=== PATIENT | female | born 1980 | race American Indian/Alaskan Native ===

== ENCOUNTER 2017-08-31 10:08 | Emergency (ER) | payer MEDICAID ==
--- NOTE | 2017-08-31 10:16 | Emergency Department Report ---
Stated Complaint: UROGENTLIA-FEMALE Time Seen by Provider: 08/31/17 10:14 - HPI History of Present Illness: PT c/o itchy vaginal discharge x 1 week. PT states the discharge is milky, + fishy odor - ROS Review of Systems: - dysuria + recent unprotected sex - Exam Physical Exam: PT looks well, non toxic No acute distress exam not done in triage MSE screening note: Focused history and physical exam performed. Due to findings the following was ordered: labs ED Disposition for MSE Condition: Stable
[2017-08-31 12:36] LABS: Bacteria,Urine 1+ /HPF (Negative); Bilirubin,Urine NEG (Negative); Blood,Urine NEG (Negative); Ketones,Urine NEG (Negative); Leukocyte Esterase,Urine LG (Negative); Nitrite,Urine NEG (Negative); Urobilinogen,Urine < 2.0 mg/dL (<2.0)
--- NOTE | 2017-08-31 12:49 | Emergency Department Report ---
ED Female HPI - General Chief complaint: Urogenital-Female Stated complaint: UROGENTLIA-FEMALE Time Seen by Provider: 08/31/17 10:14 Source: patient Mode of arrival: Ambulatory Limitations: No Limitations - History of Present Illness Initial comments: She reports vaginal discharge that smells like fish with itching in an bad odor. She says she had unsafe sex. She also denies any burning with urination. Denies any abdominal or back pain. Denies any fever or chills. Denies any nausea or vomiting. Pain is 0-10 at present. MD Complaint: vaginal discharge, possible STD Onset/Timin -: days(s) Severity scale (0 -10): 0 Are you Now?: No Last Menstrual Period: 08/01/17 (since that she is currently common on her menses) EDC: 05/08/18 Associated Symptoms: vaginal discharge. denies: vaginal bleeding, abdominal pain, nausea/vomiting, fever/chills, headaches, loss of appetite, dysuria, hematuria, rash, seizure, shortness of breath, syncope, weakness - Related Data Sexually active: Yes (practice unsafe sex) Previous Rx's Medication Instructions Recorded Last Taken Type HYDROcodone/APAP 5-325 [[place] 1 each PO Q4HR PRN #12 tablet 11/11/15 Unknown Rx 5/325] Nitrofurantoin Monohyd/M-Cryst 100 mg PO Q12H #14 capsule 08/31/17 Unknown Rx [Macrobid 100 mg Capsule] metroNIDAZOLE [Flagyl] 500 mg PO Q12HR #14 tab 08/31/17 Unknown Rx Allergies Allergy/AdvReac Type Severity Reaction Status Date / Time No Known Allergies Allergy Verified 11/10/15 22:15 ED Review of Systems ROS: Stated complaint: UROGENTLIA-FEMALE Other details as noted in HPI Comment: All other systems reviewed and negative Constitutional: no symptoms reported Eyes: denies: eye pain, vision change ENT: denies: throat pain Respiratory: no symptoms reported Cardiovascular: denies: chest pain, palpitations, edema, syncope Gastrointestinal: denies: abdominal pain, nausea, vomiting, diarrhea, constipation, hematemesis, melena, hematochezia Genitourinary: discharge. denies: urgency, dysuria, frequency, hematuria Musculoskeletal: denies: back pain, joint swelling, arthralgia, myalgia Skin: denies: rash, lesions, pruritus Neurological: denies: headache, weakness, numbness, paresthesias, confusion, abnormal gait, vertigo ED Past Medical Hx - Past Medical History Previous Medical History?: No - Surgical History Past Surgical History?: Yes Additional Surgical History: 5X - Family History Family history: no significant - Social History Smoking Status: Never Smoker Substance Use Type: None - Medications Home Medications: Home Medications Medication Instructions Recorded Confirmed Last Taken Type HYDROcodone/APAP 5-325 [[place] 1 each PO Q4HR PRN #12 tablet 11/11/15 Unknown Rx 5/325] Nitrofurantoin Monohyd/M-Cryst 100 mg PO Q12H #14 capsule 08/31/17 Unknown Rx [Macrobid 100 mg Capsule] metroNIDAZOLE [Flagyl] 500 mg PO Q12HR #14 tab 08/31/17 Unknown Rx ED Physical Exam - General Limitations: No Limitations General appearance: alert, in no apparent distress - Head Head exam: Present: atraumatic, normocephalic, normal inspection - Eye Eye exam: Present: normal appearance, PERRL, EOMI Pupils: Present: normal accommodation - ENT ENT exam: Present: normal exam, normal orophraynx, mucous membranes moist - Neck Neck exam: Present: normal inspection, full ROM. Absent: tenderness, meningismus, lymphadenopathy - Respiratory Respiratory exam: Present: normal lung sounds bilaterally. Absent: respiratory distress, chest wall tenderness - Cardiovascular Cardiovascular Exam: Present: regular rate, normal rhythm, normal heart sounds. Absent: systolic murmur, diastolic murmur - GI/Abdominal GI/Abdominal exam: Present: soft, normal bowel sounds. Absent: distended, tenderness, guarding, rebound, rigid, organomegaly, mass, bruit, pulsatile mass , hernia - External exam: Present: normal external exam, other (vaginal discharge with malodorous). Absent: erythema, swelling, lesions, lacerations, ecchymosis, bleeding Speculum exam: Present: vaginal discharge, cervical discharge. Absent: erythema , vaginal bleeding, foreign body, tissue, laceration Bi-manual exam: Absent: cervical motion tendernes, adnexal tenderness, adnexal mass, uterine enlargement, uterine tenderness - Extremities Exam Extremities exam: Present: normal inspection, full ROM, normal capillary refill , other (no clubbing, cyanosis or edema. +2 pulses in all extremities and no neurovascular compromise). Absent: tenderness, pedal edema, joint swelling, calf tenderness - Back Exam Back exam: Present: normal inspection, full ROM. Absent: tenderness, CVA tenderness (R), CVA tenderness (L), muscle spasm, paraspinal tenderness, vertebral tenderness, rash noted - Neurological Exam Neurological exam: Present: alert, oriented X3, normal gait, reflexes normal. Absent: motor sensory deficit - Psychiatric Psychiatric exam: Present: normal affect, depressed - Skin Skin exam: Present: warm, dry, intact, normal color. Absent: rash ED Course Vital Signs 08/31/17 10:16 Temperature 98.1 F Pulse Rate 87 Respiratory 16 Rate Blood Pressure 165/90 O2 Sat by Pulse 100 Oximetry - Reevaluation(s) Reevaluation #1: 08/31/17 14:02 Patient with few trichomonias and less than 20% clue cell on wet prep. She had no yeast cell. She also has urinary tract infection. This was explained to patient in detail. Patient chose to be treated empirically in emergency room for gonorrhea and chlamydia which was sent off via urine. She also wants to be treated for Trichomonas and I discussed with her that she will be treated for bacterial vaginosis with Flagyl which will also cover Trichomonas. Patient receive Rocephin 1 g IM and azithromycin 1 g by mouth without any adverse reaction. ED Medical Decision Making - Lab Data Lab Results 08/31/17 Range/Units 12:13 Urine Color Yellow (Yellow) Urine Turbidity Clear (Clear) Urine pH 5.0 (5.0-7.0) Ur Specific [place] 1.025 (1.003-1.030) Urine Protein 30 mg/dl (Negative) mg/dL Urine Glucose (UA) Neg (Negative) mg/dL Urine Ketones Neg (Negative) mg/dL Urine Blood Neg (Negative) Urine Nitrite Neg (Negative) Urine Bilirubin Neg (Negative) Urine Urobilinogen < 2.0 (<2.0) mg/dL Ur Leukocyte Esterase Lg (Negative) Urine WBC (Auto) 93.0 H (0.0-6.0) /HPF Urine RBC (Auto) 47.0 (0.0-6.0) /HPF U Epithel Cells (Auto) 9.0 (0-13.0) /HPF Urine Bacteria (Auto) 1+ (Negative) /HPF Urine HCG, Qual Negative (Negative) Wet prep with future, no cell, less than 20% cells and no yeast. Gonorrhea and chlamydia pending Urine culture pending - Medical Decision Making ED course: Pt here report that she has malodorous vaginal discharge after having on safe sex. She has not told the person that she was having abnormal vaginal discharge and I encouraged her that she needs to report this to the individual so they can go and get tested at the health Department. Her wet prep was positive for less than 20% clue cells and she had few Trichomonas cells. He had no yeast. Patient also had positive malodorous discharge with pelvic exam. Gonorrhea and chlamydia tests sent and pending. He had positive bacteria, white blood cell and large leukocyte esterase in her urine. She also had 30 of protein in her urine suspect from infection. Discussed with patient her urine results and vaginal swab results and she decided to be treated empirically emergency room for gonorrhea and chlamydia. Patient will also be discharged home with prescription for Macrobid to treat UTI and Flagyl to treat Trichomonas and bacterial vaginosis. She was understanding the discharge instruction and I discussed with her that she needs to practice safe sex and refrain from having sex for the next 2 weeks and return today health Department in [facility] for follow-up STD testing in 7-10 days. Patient discharged home in stable condition with prescription for Macrobid and Flagyl. I told her that she should refrain from drinking all call while on Flagyl as this medication can cause negative reaction would all call and cause her to have stomach upset with nausea and vomiting. Patient was treated with Rocephin 1 g IM treat UTI and gonorrhea and azithromycin 1 g by mouth to treat chlamydia. Critical care attestation.: If time is entered above; I have spent that time in minutes in the direct care of this critically ill patient, excluding procedure time. ED Disposition Clinical Impression: Vaginal discharge, Acute cystitis without hematuria, Bacterial vaginosis, Urogenital trichomoniasis Disposition: TO HOME OR SELFCARE Is pt being admited?: No Does the pt Need Aspirin: No Condition: Stable Instructions: Bacterial Vaginosis (ED), Sexually Transmitted Diseases (ED), Safe Sex (ED), Trichomoniasis (ED), Urinary Tract Infection in Women (ED) Additional Instructions: Please practice safe sex Please follow up at health Department in 7-10 days for repeat testing Take Antibiotic for urinary tract infection Increase your fluid intake Please inform her partner that you were treated for STD and emergency room and he'll need to go get tested at health department Please refrain from having sex with her next 14 days Please do not drink alcohol for the next 7 days as medication given for Trichomonas can react with all call and cause you to have severe stomach upset. Prescriptions: metroNIDAZOLE [Flagyl] 500 mg PO Q12HR #14 tab Nitrofurantoin Monohyd/M-Cryst [Macrobid 100 mg Capsule] 100 mg PO Q12H #14 capsule Referrals: PRIMARY CARE, [Primary Care Provider] - 3-5 Days Forms: STI Treatment and Prevention, Work/School Release Form(ED)
[2017-08-31] MEDS: ROCEPHIN IM ONE (13:50)
[2017-08-31] MEDS: ZITHROMAX PO ONE (13:50)
[2017-08-31] MEDS: XYLOCAINE 1% MPF 5 mL INFILTRATI ONE (13:50)
[2017-08-31 14:36] VITALS: BP 135/87
== END 2017-08-31 14:36 | disposition home or self-care (01) ==
LOC: ED 10:08
DX: N89.8 Other specified noninflammatory disorders of vagina (principal); N30.00 Acute cystitis without hematuria; A59.00 Urogenital trichomoniasis, unspecified; N76.0 Acute vaginitis; Z98.890 Other specified postprocedural states
CPT/HCPCS: 81001; 81025; 87086; 87210; 87591; 96372; 99284; J0696

== ENCOUNTER 2018-02-08 09:39 | Emergency (ER) | payer MEDICAID ==
[2018-02-08 11:46] VITALS: BP 131/78
--- NOTE | 2018-02-08 13:09 | Emergency Department Report ---
Minor Respiratory - HPI Chief Complaint: Upper Respiratory Infection Stated Complaint: FLU LIKE SYMPTOMS Time Seen by Provider: 02/08/18 12:55 Duration: 2 Days Pain Location: Throat Severity: mild Minor Respiratory: Yes Sore Throat, Yes Able to Tolerate Fluids, Yes Sick Contacts (son with same symptoms), Yes Fever, No Rhinorrhea, No Ear Pain, No Cough, No Hemoptysis, No Chest Pain, No Shortness of Breath Other History: Healthy 37-year-old female who presents with sore throat for 2 days. Son. Also has the same symptoms. ED Review of Systems ROS: Stated complaint: FLU LIKE SYMPTOMS Other details as noted in HPI Constitutional: malaise. denies: fever ENT: throat pain. denies: ear pain Respiratory: denies: cough Cardiovascular: denies: chest pain Gastrointestinal: denies: abdominal pain, nausea, vomiting ED Past Medical Hx - Surgical History Additional Surgical History: 5X - Social History Smoking Status: Never Smoker - Medications Home Medications: Home Medications Medication Instructions Recorded Confirmed Last Taken Type HYDROcodone/APAP 5-325 [[place] 1 each PO Q4HR PRN #12 tablet 11/11/15 Unknown Rx 5/325] Nitrofurantoin Monohyd/M-Cryst 100 mg PO Q12H #14 capsule 08/31/17 Unknown Rx [Macrobid 100 mg Capsule] metroNIDAZOLE [Flagyl] 500 mg PO Q12HR #14 tab 08/31/17 Unknown Rx Minor Respiratory Exam - Exam General: Vital signs noted. No distress. Alert and acting appropriately. HEENT: Yes Pharyngeal Erythema, Yes Pharyngeal Exudates, Yes Moist Mucous Membranes, No Rhinorrhea, No Conjuctival Injection Neck: Yes Adenopathy, No Supple Lungs: Yes Good Air Exchange, No Wheezes, No [place], No Stridor, No Cough, No Labored Respirations, No Retractions, No Use of Accessory Muscles, No Other Abnormal Lung Sounds Heart: Yes Regular, No Murmur Abdomen: No Tenderness, No Peritoneal Signs Neurologic: Alert and oriented, no deficits. Musculoskeletal: Unremarkable. ED Course Vital Signs 02/08/18 11:45 Temperature 98.1 F Pulse Rate 73 Respiratory 16 Rate Blood Pressure 131/78 [Right] O2 Sat by Pulse 100 Oximetry ED Medical Decision Making - Medical Decision Making Ms. Menendez presents with pharyngitis. Mild pharyngitis without [employer]. Recommended supportive care. Strep test negative. Critical care attestation.: If time is entered above; I have spent that time in minutes in the direct care of this critically ill patient, excluding procedure time. ED Disposition Clinical Impression: Pharyngitis Disposition: DC-01 TO HOME OR SELFCARE Is pt being admited?: No Does the pt Need Aspirin: No Condition: Stable Instructions: Pharyngitis (ED) Referrals: [facility] [Outside] - [facility] Time of Disposition: 13:59
== END 2018-02-08 14:13 | disposition home or self-care (01) ==
LOC: ED 09:39
DX: J02.9 Acute pharyngitis, unspecified (principal)
CPT/HCPCS: 87116; 87430; 99283

== ENCOUNTER 2018-12-06 21:46 | Emergency (ER) | payer MEDICAID ==
[2018-12-06 21:55] VITALS: BP 137/76
[2018-12-06 22:47] LABS: Basophils # (Auto) 0.1 K/mm3 (0.0-0.1); Basophils % (Auto) 0.4 % (0.0-1.8); Eosinophils # (Auto) 0.1 K/mm3 (0.0-0.4); Eosinophils % (Auto) 0.8 % (0.0-4.3); Hemoglobin 9.7 gm/dl (10.1-14.3); Lymphocytes # (Auto) 2.6 K/mm3 (1.2-5.4); Lymphocytes % (Auto) 21.4 % (13.4-35.0); Mean Corpuscular HGB Conc 31 % (30-34); Mean Corpuscular Volume 77 fl (79-97); Monocytes # (Auto) 0.8 K/mm3 (0.0-0.8); Monocytes % (Auto) 6.7 % (0.0-7.3); Platelet Count 347 K/mm3 (140-440); Red Cell Distribution Width 16.8 % (13.2-15.2)
--- NOTE | 2018-12-07 00:47 | Ultrasound Report ---
FINAL REPORT EXAM: US OB TRANSVAGINAL HISTORY: vag bleed TECHNIQUE: Transvaginal imaging was obtained of the pelvis. FINDINGS: The uterus is anteverted measuring 11.8 cm x 6.3 cm x 8.6 cm. The endometrial thickness is 10.1 mm. I n the right lateral wall uterus is a hypoechoic fibroid measuring 4.5 cm x 4.2 cm x 4.1 cm. At the ju nction of the lower uterine segment and internal os is a small sac-like structure measuring 9.4 mm in diameter. This would correspond to a 5 week 5 day . There is no evidence of yolk sac or fet al pole. The left ovary is normal size contour and echotexture measuring 2.2 cm x 1.1 cm x 2.1 cm. The right ovary measures 3.5 cm x 1.7 cm x 2.8 cm. Within the right ovary is 2.3 cm cystic structure which may represent a corpus luteum cyst. Free fluid is not seen. IMPRESSION: Small sac-like structure in the lower uterine segment just above the internal os which would correspo nd to a 5 week 5 day . No evidence of a pole or yolk sac. Follow-up imaging is recomme nded to confirm an early IUP versus an incomplete . Fibroid in the right lateral wall of the body of the uterus with measurements. 2.3 cm functional cyst in the right ovary possibly representing corpus luteum cyst. No evidence of free fluid.
--- NOTE | 2018-12-07 00:55 | Ultrasound Report ---
FINAL REPORT EXAM: US OB <= 14 WEEKS FETUS HISTORY: vag bleed TECHNIQUE: Transabdominal imaging was obtained of the pelvis. FINDINGS: The uterus is anteverted measuring 11.8 cm x 6.3 cm x 8.6 cm. The endometrial thickness is 10.1 mm. I n the lower uterine segment is small cyst like structure measuring 9.4 mm in diameter which would cor respond to a 5 week 5 day . There is no evidence of pole or yolk sac. Free fluid is no t seen. In the right lateral wall of the uterus is a hypoechoic fibroid measuring 4.5 cm x 4.2 cm x 4 .1 cm. The left ovary is normal size contour and echotexture measuring 2.2 cm x 1.1 cm x 2.1 cm. The right ovary measures 3.5 cm x 1.7 cm x 2.8 cm. Within the right ovary is a 2.3 cm cyst possibly r epresenting corpus luteum cyst. IMPRESSION: Lower intrauterine sac-like structure as described which would correspond to a 5 week 5 day . No evidence of pole or yolk sac. Follow-up imaging is recommended to confirm a viable IUP tammy camilo an incomplete . 2.3 cm functional cyst in the right ovary possibly representing corpus luteum cyst. Fibroid right lateral wall of the body uterus. No evidence of free fluid.
--- NOTE | 2018-12-07 03:02 | Emergency Department Report ---
ED General Adult HPI - General Chief complaint: Vaginal Bleeding Stated complaint: 2MNTS PREG BLEEDING Time Seen by Provider: 12/07/18 03:00 Source: patient Mode of arrival: Ambulatory Limitations: No Limitations - History of Present Illness Initial comments: 38-year-old female who states that she is 8 weeks presents stating that she is noticing increased vaginal bleeding for the past 2 days. Patient states he had one pad change per hour. Patient states that she is 111 miscarriage 5 abortions and 4 living children. Patient denies any hematemesis or any hematochezia. Patient denies any vomiting. Patient denies any dizziness or lightheadedness at this current time. - Related Data Previous Rx's Medication Instructions Recorded Last Taken Type HYDROcodone/APAP 5-325 [[place] 1 each PO Q4HR PRN #12 tablet 11/11/15 Unknown Rx 5/325] Nitrofurantoin Monohyd/M-Cryst 100 mg PO Q12H #14 capsule 08/31/17 Unknown Rx [Macrobid 100 mg Capsule] metroNIDAZOLE [Flagyl] 500 mg PO Q12HR #14 tab 08/31/17 Unknown Rx Allergies Allergy/AdvReac Type Severity Reaction Status Date / Time No Known Allergies Allergy Verified 11/10/15 22:15 ED Review of Systems ROS: Stated complaint: 2MNTS PREG BLEEDING Other details as noted in HPI Constitutional: denies: chills, fever Eyes: denies: eye pain, eye discharge, vision change ENT: denies: ear pain, throat pain Respiratory: denies: cough, shortness of breath, wheezing Cardiovascular: denies: chest pain, palpitations Endocrine: no symptoms reported Gastrointestinal: denies: abdominal pain, nausea, diarrhea Genitourinary: other (vaginal bleeding) Musculoskeletal: denies: back pain, joint swelling, arthralgia Skin: denies: rash, lesions Neurological: denies: headache, weakness, paresthesias Psychiatric: denies: anxiety, depression Hematological/Lymphatic: denies: easy bleeding, easy bruising ED Past Medical Hx - Past Medical History Previous Medical History?: No - Surgical History Past Surgical History?: Yes Additional Surgical History: 5X - Social History Smoking Status: Never Smoker Substance Use Type: None - Medications Home Medications: Home Medications Medication Instructions Recorded Confirmed Last Taken Type HYDROcodone/APAP 5-325 [[place] 1 each PO Q4HR PRN #12 tablet 11/11/15 Unknown Rx 5/325] Nitrofurantoin Monohyd/M-Cryst 100 mg PO Q12H #14 capsule 08/31/17 Unknown Rx [Macrobid 100 mg Capsule] metroNIDAZOLE [Flagyl] 500 mg PO Q12HR #14 tab 08/31/17 Unknown Rx ED Physical Exam - General Limitations: No Limitations General appearance: alert, in no apparent distress - Head Head exam: Present: atraumatic, normocephalic - Eye Eye exam: Present: normal appearance - ENT ENT exam: Present: mucous membranes moist - Neck Neck exam: Present: normal inspection - Respiratory Respiratory exam: Present: normal lung sounds bilaterally. Absent: respiratory distress - Cardiovascular Cardiovascular Exam: Present: regular rate, normal rhythm. Absent: systolic murmur, diastolic murmur, rubs, gallop - GI/Abdominal GI/Abdominal exam: Present: soft, normal bowel sounds - External exam: Present: normal external exam Speculum exam: Present: other (os closed; minimal blood in vault; no clot noted ( female nurse research affiliate present)) - Extremities Exam Extremities exam: Present: normal inspection - Back Exam Back exam: Present: normal inspection - Neurological Exam Neurological exam: Present: alert, oriented X3 - Psychiatric Psychiatric exam: Present: normal affect, normal mood - Skin Skin exam: Present: warm, dry, intact, normal color. Absent: rash ED Course Vital Signs 12/06/18 21:53 Temperature 98.0 F Pulse Rate 90 Respiratory 16 Rate Blood Pressure 137/76 O2 Sat by Pulse 99 Oximetry ED Medical Decision Making - Lab Data Result diagrams: 12/06/18 22:28 - Medical Decision Making Patient currently is sitting upright comfortable in no acute distress. Patient's ultrasound was reviewed and patient made aware of the need for her to follow up with her OB for potential threatened miscarriage. Patient currently denies any abdominal pain. - Differential Diagnosis ectopic ; that miscarriage; electrolyte abnormalities; anemia Critical care attestation.: If time is entered above; I have spent that time in minutes in the direct care of this critically ill patient, excluding procedure time. ED Disposition Clinical Impression: Vaginal bleeding, Threatened miscarriage Disposition: DC-01 TO HOME OR SELFCARE Is pt being admited?: No Condition: Stable Instructions: Threatened Miscarriage (ED) Referrals: HANS PRICE MD [Primary Care Provider] - 3-5 Days DENNIS BUTLER MD [Referring] - 3-5 Days Time of Disposition: 05:22 Print Language: BENGALI
== END 2018-12-07 07:10 | disposition home or self-care (01) ==
LOC: ED 21:46
DX: O20.0 Threatened abortion (principal); Z3A.08 8 weeks gestation of pregnancy
CPT/HCPCS: 36415; 76801; 76817; 84702; 85025; 86850; 86900; 86901

== ENCOUNTER 2018-12-18 21:02 | Emergency (ER) | payer MEDICAID ==
[2018-12-18 22:14] LABS: Basophils % (Auto) 0.4 % (0.0-1.8); Eosinophils # (Auto) 0.1 K/mm3 (0.0-0.4); Eosinophils % (Auto) 0.8 % (0.0-4.3); Hematocrit 31.6 % (30.3-42.9); Lymphocytes # (Auto) 2.7 K/mm3 (1.2-5.4); Lymphocytes % (Auto) 31.2 % (13.4-35.0); Mean Corpuscular HGB Conc 32 % (30-34); Mean Corpuscular Volume 76 fl (79-97); Monocytes # (Auto) 0.5 K/mm3 (0.0-0.8); Monocytes % (Auto) 5.9 % (0.0-7.3); Platelet Count 356 K/mm3 (140-440); Red Blood Count 4.18 M/mm3 (3.65-5.03); Red Cell Distribution Width 16.5 % (13.2-15.2)
--- NOTE | 2018-12-18 22:38 | Emergency Department Report ---
ED Female HPI - General Chief complaint: Vaginal Bleeding Stated complaint: POSS MISCARRIAGE Time Seen by Provider: 12/18/18 22:33 Source: patient, family Mode of arrival: Ambulatory Limitations: No Limitations - History of Present Illness Initial comments: This is a 38-year-old female here report that she was here on 12/06/2018 and diagnosed with threatened miscarriage she says she was having some bleeding at the time. Patient here today with vaginal bleeding and that she passed a clot which she saved in a bad and now she is having scant vaginal bleeding without any discharge. Denies any urinary burning, frequency or urgency. Denies any abdominal pain. She says she believes she lost the baby. Denies any back pain. She says she was having minimal cramping early and just some Tylenol but now she is not having any cramping.Quant on 12/06/2018 was 4719 and ultrasound showed possible intrauterine but it was too early to determine viability. Denies any nausea or vomiting or fever or chills. Patient says she called to make an appointment [facility] but she could not get one. MD Complaint: vaginal bleeding -: This afternoon Severity scale (0 -10): 0 Are you Now?: Yes Last Menstrual Period: 09/25/18 EDC: 07/02/19 Associated Symptoms: vaginal bleeding. denies: vaginal discharge, abdominal pain, nausea/vomiting, fever/chills, headaches, loss of appetite, dysuria, hematuria, rash, seizure, shortness of breath, syncope, weakness - Related Data Sexually active: No Previous Rx's Medication Instructions Recorded Last Taken Type HYDROcodone/APAP 5-325 [[place] 1 each PO Q4HR PRN #12 tablet 11/11/15 Unknown Rx 5/325] Nitrofurantoin Monohyd/M-Cryst 100 mg PO Q12H #14 capsule 08/31/17 Unknown Rx [Macrobid 100 mg Capsule] metroNIDAZOLE [Flagyl] 500 mg PO Q12HR #14 tab 08/31/17 Unknown Rx Allergies Allergy/AdvReac Type Severity Reaction Status Date / Time No Known Allergies Allergy Verified 11/10/15 22:15 ED Review of Systems ROS: Stated complaint: POSS MISCARRIAGE Other details as noted in HPI Constitutional: denies: chills, fever Respiratory: denies: cough, shortness of breath, wheezing Cardiovascular: denies: chest pain, palpitations, edema, syncope Gastrointestinal: denies: abdominal pain, nausea, vomiting, hematemesis, hematochezia Genitourinary: abnormal menses, other (vaginal bleed and clot). denies: urgency, dysuria, frequency, hematuria, discharge Musculoskeletal: denies: back pain, joint swelling, arthralgia Skin: denies: rash Neurological: denies: headache, weakness ED Past Medical Hx - Past Medical History Previous Medical History?: No - Surgical History Past Surgical History?: Yes Additional Surgical History: 5X - Social History Smoking Status: Never Smoker Substance Use Type: None - Medications Home Medications: Home Medications Medication Instructions Recorded Confirmed Last Taken Type HYDROcodone/APAP 5-325 [[place] 1 each PO Q4HR PRN #12 tablet 11/11/15 Unknown Rx 5/325] Nitrofurantoin Monohyd/M-Cryst 100 mg PO Q12H #14 capsule 08/31/17 Unknown Rx [Macrobid 100 mg Capsule] metroNIDAZOLE [Flagyl] 500 mg PO Q12HR #14 tab 08/31/17 Unknown Rx ED Physical Exam - General Limitations: No Limitations General appearance: alert, in no apparent distress - Head Head exam: Present: atraumatic, normocephalic, normal inspection - Eye Eye exam: Present: normal appearance, PERRL, EOMI Pupils: Present: normal accommodation - ENT ENT exam: Present: normal exam, normal orophraynx, mucous membranes moist - Neck Neck exam: Present: normal inspection, full ROM. Absent: tenderness, lymphadeno robert - Respiratory Respiratory exam: Present: normal lung sounds bilaterally. Absent: respiratory distress, chest wall tenderness - Cardiovascular Cardiovascular Exam: Present: regular rate, normal rhythm, normal heart sounds - GI/Abdominal GI/Abdominal exam: Present: soft, normal bowel sounds. Absent: distended, tenderness, guarding, rebound, rigid, organomegaly, mass - External exam: Present: normal external exam, bleeding (scant bleeding noted on pad. No active bleeding noted from vagina). Absent: erythema, swelling, lesions, lacerations, ecchymosis - Extremities Exam Extremities exam: Present: normal inspection, full ROM, normal capillary refill, other (No cce. + 2 pulses in all extremities, no neurovascular compromise). Absent: tenderness, pedal edema, joint swelling, calf tenderness - Back Exam Back exam: Present: normal inspection, full ROM, other (ambulates without any difficulty and). Absent: tenderness, CVA tenderness (R), CVA tenderness (L), muscle spasm, paraspinal tenderness, vertebral tenderness, rash noted - Neurological Exam Neurological exam: Present: alert, oriented X3, normal gait - Psychiatric Psychiatric exam: Present: normal affect, normal mood - Skin Skin exam: Present: warm, dry, intact, normal color. Absent: rash ED Course Vital Signs 12/18/18 21:06 Temperature 98.4 F Pulse Rate 99 H Respiratory 18 Rate Blood Pressure 145/84 O2 Sat by Pulse 100 Oximetry - Reevaluation(s) Reevaluation #1: 12/18/18 23:57 Patient stable throughout ED course. Quantitative beta hCG dropped from 4718 t o 407 since 12/06/2018 Reevaluation #2: 12/19/18 00:33 Patient is stable and does not seem to be in any distress after being told that she had miscarriage. She has had 5 in the past ED Medical Decision Making - Lab Data Result diagrams: 12/18/18 21:51 Lab Results 12/18/18 12/18/18 12/18/18 Range/Units 21:51 21:51 21:51 WBC 8.8 (4.5-11.0) K/mm3 RBC 4.18 (3.65-5.03) M/mm3 Hgb 10.0 L (10.1-14.3) gm/dl Hct 31.6 (30.3-42.9) % MCV 76 L (79-97) fl MCH 24 L (28-32) pg MCHC 32 (30-34) % RDW 16.5 H (13.2-15.2) % Plt Count 356 (140-440) K/mm3 Lymph % (Auto) 31.2 (13.4-35.0) % [place] % (Auto) 5.9 (0.0-7.3) % Eos % (Auto) 0.8 (0.0-4.3) % Baso % (Auto) 0.4 (0.0-1.8) % Lymph # 2.7 (1.2-5.4) K/mm3 [place] # 0.5 (0.0-0.8) K/mm3 Eos # 0.1 (0.0-0.4) K/mm3 Baso # 0.0 (0.0-0.1) K/mm3 Seg Neutrophils % 61.7 (40.0-70.0) % Seg Neutrophils # 5.5 (1.8-7.7) K/mm3 HCG, Quant 408.7 H (0-4) mIU/mL Blood Type A POSITIVE Antibody Screen Negative Previous H&H was low or slow improvement and I will place her on iron pill. - Radiology Data Radiology results: report reviewed OB less than 14 weeks transvaginal done on 12/06/2018 and showed small saclike structure in the lower uterine segment just above the internal os and OB ultrasound today shows no viable or extrauterine or intrauterine. This is dictated by radiologist and report reviewed by myself. Please see det ails below Findings [facility] [address] [place] [address] Ultrasound Report Signed Patient: LOUIS BYNUM MR#: [id number] : 1980 Acct:[id number] Age/Sex: 38 / F ADM Date: 12/18/18 Loc: ED Attending Dr: Ordering Physician: ARLEY HERNADEZ Date of Service: 12/18/18 Procedure(s): US OB transvaginal Accession Number(s): [id number] cc: ARLEY HERNADEZ FINAL REPORT PROCEDURE: US OB lt; = 14 WEEKS FETUS TECHNIQUE: Real-time transabdominal and transvaginal sonography of the uterus, placenta, amniotic fluid, adnexa, and fetus was performed with image documentation. Measurements were obtained to determine age/size. M-mode Doppler was used to document heartbeat. CPT 84432 and 49403 HISTORY: with vaginal bleeding COMPARISON: No prior studies are available for comparison. FINDINGS: The uterus size is 9.4 x 6.1 x 7 6. The endometrial pattern has a thickness of 5 millimeters. There is no evidence of a gestational sac on this study. There is an anterior fibroid in the myometrium this measures up to 41 millimeters. Both ovaries have normal size. There is a 13 millimeter cyst on the right ovary. The findings may indicate early or failure. Ectopic pregna ncy is not excluded on the basis of this single study. Repeat study in approximately 14 days may be appropriate. IMPRESSION: There is no evidence of a within the uterus on this study. The uterus and ovaries have a normal appearance. There is a dominant cyst on the right ovary this measures 13 millimeters. The finding most likely indicate early . failure and ectopic are not excluded on the basis of this study. Followup studies should be obtained. This could include serial beta HCG levels and perhaps repeat ultrasound in approximately 14 days. Transcribed By: [facility] Dictated By: NAM JARQUIN MD Electronically Authenticated By: NAM JARQUIN MD Signed Date/Time: 12/18/182352 DD/ 51 TD/TT: 12/18/182351 patient with positive test. Please see details below. Findings [facility] [address] [place] [address] Ultrasound Report Signed Patient: LOUIS BYNUM MR#: [id number] : 1980 Acct:[id number] Age/Sex: 38 / F ADM Date: 12/06/18 Loc: ED Attending Dr: Ordering Physician: SADAF OVIEDO MD Date of Service: 12/06/18 Procedure(s): US OB transvaginal Accession Number(s): [id number] cc: SADAF OVIEDO MD FINAL REPORT EXAM: US OB TRANSVAGINAL HISTORY: vag bleed TECHNIQUE: Transvaginal imaging was obtained of the pelvis. FINDINGS: The uterus is anteverted measuring 11.8 cm x 6.3 cm x 8.6 cm. The endometrial thickness is 10.1 mm. In the right lateral wall uterus is a hypoechoic fibroid measuring 4.5 cm x 4.2 cm x 4.1 cm. At the junction of the lower uterine segment and internal os is a small sac-like st ructure measuring 9.4 mm in diameter. This would correspond to a 5 week 5 day . There is no evidence of yolk sac or pole. The left ovary is normal size contour and echotexture measuring 2.2 cm x 1.1 cm x 2.1 cm. The right ovary measures 3.5 cm x 1.7 cm x 2.8 cm. Within the right ovary is 2.3 cm cystic structure which may represent a corpus luteum cyst. Free fluid is not seen. IMPRESSION: Small sac-like structure in the lower uterine segment just above the internal os which would correspond to a 5 week 5 day . No evidence of a pole or yolk sac. Follow-up imaging is recommended to confirm an early IUP versus an incomplete . Fibroid in the right lateral wall of the body of the uterus with measurements. 2.3 cm functional cyst in the right ovary possibly representing corpus luteum cyst. No evidence of free fluid. Transcribed By: RB Dictated By: DESHAUN MENESES MD Electronically Authenticated By: DESHAUN MENESES MD Signed Date/Time: 12/07/1846 DD/ TD/TT: 12/07/1848 - Medical Decision Making This is a 38-year-old female here report that she thinks she had a miscarriage. She has urine 12/06/2018 for threatened miscarriage and was referred to [facility] which she did not start to see because she states she could not get in touch with her cycle. Ultrasound transvaginal and transabdominal OB less than 14 weeks shows no intrauterine or extrauterine and no products of conception seen. Patient also has a left ovarian cyst which is RAD aware of. Patient beta-hCG dropped significantly since 12/06/2018. Her H&H is slightly low but it was better than it was previously. I will refer patient to [facility] and start her on iron pill. I discussed her laboratory results, results and ultrasound results and patient and she is in stable condition. Vital signs are stable she is afebrile. Discharge home with her family in stable condition. No pain and given a prescription for Slow Fe for anemia and to follow-up with [facility] in 3 days. She voiced understanding. We will refer to [facility], mild [facility] and [facility] and I told her to call and worker she can get the appointment which she can follow-up with. - Differential Diagnosis complete vs threatened miscarriage, vaginal bleed vs abdominal pain in preg Critical care attestation.: If time is entered above; I have spent that time in minutes in the direct care of this critically ill patient, excluding procedure time. ED Disposition Clinical Impression: Complete miscarriage, Vaginal bleeding affecting early , Anemia, mild Disposition: -01 TO HOME OR SELFCARE Is pt being admited?: No Does the pt Need Aspirin: No Condition: Stable Instructions: Anemia (ED), Spontaneous Miscarriage (ED) Additional Instructions: Please follow-up with [facility] in 2-3 days. Please see multiple referral given and please call tomorrow and schedule appointment with whichever office she can get in within 3 days Take Slow Fe twice daily for anemia and take this medication and with Colace as a can cause constipation Increase her fluid and fiber intake. If you develop increased vaginal bleeding, abdominal pain, fever and or chills, back pain, nausea and vomiting, return to the emergency room otherwise follow-up with [facility] You will need to have a repeat hormone tests and radiologist's report that you will also need to have repeat ultrasound within 2 weeks. You can discuss this with your [facility] was access to the medical records at this hospital Referrals: MATTHEW MURCIA [Primary Care Provider] - 3-5 Days
--- NOTE | 2018-12-18 23:53 | Ultrasound Report ---
FINAL REPORT PROCEDURE: US OB <= 14 WEEKS FETUS TECHNIQUE: Real-time transabdominal and transvaginal sonography of the uterus, placenta, amniotic fl uid, adnexa, and fetus was performed with image documentation. Measurements were obtained to determin e age/size. M-mode Doppler was used to document heartbeat. CPT 46128 and 24755 HISTORY: with vaginal bleeding COMPARISON: No prior studies are available for comparison. FINDINGS: The uterus size is 9.4 x 6.1 x 7 6. The endometrial pattern has a thickness of 5 millimeters. There i s no evidence of a gestational sac on this study. There is an anterior fibroid in the myometrium this measures up to 41 millimeters. Both ovaries have normal size. There is a 13 millimeter cyst on the right ovary. The findings may indicate early or failure. Ectopic is not excluded on the basis of this single study. Repeat study in approximately 14 days may be appropriate. IMPRESSION: There is no evidence of a within the uterus on this study. The uterus and ovaries have a no rmal appearance. There is a dominant cyst on the right ovary this measures 13 millimeters. The findin g most likely indicate early . failure and ectopic are not excluded on t he basis of this study. Followup studies should be obtained. This could include serial beta HCG level s and perhaps repeat ultrasound in approximately 14 days.
[2018-12-19 00:59] VITALS: BP 122/74
== END 2018-12-19 00:57 | disposition home or self-care (01) ==
LOC: ED 21:02
DX: O03.9 Complete or unspecified spontaneous abortion without complication (principal); Z86.2 Personal history of diseases of the blood and blood-forming organs and certain disorders involving the immune mechanism; Z3A.01 Less than 8 weeks gestation of pregnancy
CPT/HCPCS: 36415; 76801; 76817; 84702; 85025; 86850; 86900; 86901; 99284